=== PATIENT | female | born 1930 | race Caucasian/White ===

== ENCOUNTER → 2018-02-24 | Outpatient (CLI) | payer MEDICARE ==
[~2018-02-24] MED LIST: GADOBUTROL 7.5 MMOL/7.5 ML VIAL ONE
== END | disposition home or self-care (01) ==
LOC: CFH 13:11
PROVIDERS: ATTEND Surgery
DX: K76.89 Other specified diseases of liver (principal); D73.89 Other diseases of spleen; R19.09 Other intra-abdominal and pelvic swelling, mass and lump; Z90.710 Acquired absence of both cervix and uterus
CPT/HCPCS: 72197; 74183; A9585

== ENCOUNTER 2018-07-20 23:45 | Inpatient (IN) | payer MEDICARE ==
[~2018-07-20] VITALS: Ht 165.1 cm; Wt 75.3 kg
[2018-07-21] MEDS ORDERED: CEFTRIAXONE PMX 1GM/50ML 50 ML ONE (00:19)
[2018-07-21] MEDS ORDERED: methylPREDNISolone SOD SUCC 125 MG/2 ML ONE (00:19)
[2018-07-21] MEDS ORDERED: DOXYCYCLINE 100 MG in DEXTROSE 5% 250 ML IV ONE ×2 (00:30→02:30)
[2018-07-21] MEDS ORDERED: SODIUM CHLORIDE FLUSH 10ML SYR IVF ONE (00:30)
[2018-07-21] MEDS ORDERED: CEFTRIAXONE 1,000 MG in SODIUM CHLORIDE 0.9% 50 ML IVPB ONE (00:30)
[2018-07-21] MEDS ORDERED: methylPREDNISolone SOD SUCC 125 MG/2 ML IVP ONE (00:30)
--- NOTE | 2018-07-21 00:30 | NUR ---
PT ARRIVES TO ED WITH C/O OF SOB. PT ON ARRIVAL I WORKING TO BREATH AND BREATHING RAPIDLY AND PSOTURING. PT PLACED ON 4L NC AND PLACED INTO BETTER BODY POSITION TO BREATH. PT ON ASSESSMENT HAS CRACKLES THROUGHOUT LUNGS AND POOR AIR MOVEMENT. PT REPORTS THAT SHE FEELS LIKE SHE HAS PNEUMONIA THIS IS HOW SHE FELT BEFORE. PT CONNECTED TO ALL MONITORS AND CALL LIGHT IN REACH, LABS DRAWN, PIV PLACED AND MEDICATED PER EMAR. AWAITING FURTHER ORDERS AT THIS TIME.
[2018-07-21 00:35] LABS: MEAN CORPUSCULAR HEMOGLOBIN 30.2 pg (27.0-34.8); MEAN CORPUSCULAR HGB CONC 33.7 g/dL (32.4-35.8); MEAN CORPUSCULAR VOLUME 89.6 fL (80-100); MEAN PLATELET VOLUME 8.9 fL (7.4-10.4); PLATELET COUNT 165 x10^3/uL (130-400); RED BLOOD COUNT 4.76 x10^6/uL (3.82-5.3); RED CELL DISTRIBUTION WIDTH 15.6 % (9.6-15.2)
[2018-07-21 00:40] LABS: INTERNATIONAL NORMALIZED RATIO 1.15 (0.93-1.1)
[2018-07-21 00:43] LABS: ALANINE AMINOTRANSFERASE 20 U/L (12-78); ALBUMIN 3.3 g/dL (3.4-5.0); ANION GAP 10 mmol/L (5-15); CALCIUM 8.8 mg/dL (8.5-10.1); CHLORIDE 100 mmol/L (98-107); CREATININE 1.51 mg/dL (0.55-1.02)
[2018-07-21 00:48] LABS: ALKALINE PHOSPHATASE 96 U/L (45-117); BILIRUBIN,TOTAL 1.5 mg/dL (0.2-1.0); TOTAL PROTEIN 6.9 g/dL (6.4-8.2); TROPONIN I 0.029 ng/mL (0.000-0.045)
[2018-07-21] MEDS ORDERED: SODIUM CHLORIDE 0.9%, 500ML IVBOLUS ONE (01:00)
[2018-07-21] MEDS ORDERED: ATOR20TA37 PO (01:11)
[2018-07-21] MEDS ORDERED: EZET10TA18 PO (01:11)
[2018-07-21] MEDS ORDERED: CHOL2000 PO (01:11)
[2018-07-21] MEDS ORDERED: OMEP-110 PO (01:11)
[2018-07-21] MEDS ORDERED: FLUT1BLS PO (01:11)
[2018-07-21] MEDS ORDERED: BENA20TA54 PO (01:11)
[2018-07-21] MEDS ORDERED: ASPI-515 PO (01:11)
[2018-07-21 01:12] LABS: MD YES
--- NOTE | 2018-07-21 01:13 | NUR ---
REPORT TO [facility].
[2018-07-21 01:14] LABS: <PLATELET ESTIMATE> ADEQUATE; <PLT MORPHOLOGY> NORMAL PLT MORPH; <RBC MORPHOLOGY> NORMAL; BAND#(MANUAL) 2.08 x10^3/uL; BANDS%(MANUAL) 10 % (0-7); LYMPH#(MANUAL) 1.25 x10^3/uL (1-3.4); LYMPHS% (MANUAL) 6 % (22-44); MONOS#(MANUAL) 0.21 x10^3/uL (0.3-2.7); MONOS% (MANUAL) 1 % (2-9); SEG#(MANUAL) 17.26 x10^3/uL (1.8-6.8); SEGS% (MANUAL) 83 % (42-75)
[2018-07-21 01:30] VITALS: BP 144/73
[2018-07-21] MEDS ORDERED: ONDANSETRON ODT 4 MG PO PRN (01:30)
[2018-07-21] MEDS ORDERED: OXYcodone/APAP 5/325MG TABLET PO PRN (01:30)
[2018-07-21] MEDS ORDERED: POLYETHYLENE GLYCOL 17 GM PACKET PO PRN (01:30)
[2018-07-21] MEDS ORDERED: morphine SULFATE 10 MG/ML, 1ML IVPush PRN (01:30)
[2018-07-21] MEDS ORDERED: LABETALOL 5MG/ML, 20ML IVPush PRN (01:30)
[2018-07-21] MEDS ORDERED: BISACODYL 10 MG SUPP PR PRN (01:30)
[2018-07-21] MEDS ORDERED: DOCUSATE 100 MG CAPSULE PO PRN (01:30)
[2018-07-21] MEDS ORDERED: PROMETHAZINE 25 MG/ML, 1ML IM PRN (01:30)
[2018-07-21] MEDS ORDERED: hydrALAzine 20 MG/ML, 1ML IVPush PRN (01:30)
[2018-07-21] MEDS ORDERED: CEFTRIAXONE PMX 1GM/50ML 50 ML IV ONE (01:30)
[2018-07-21] MEDS ORDERED: ONDANSETRON 2MG/ML, 2ML IVPush PRN (01:30)
[2018-07-21 01:52] LABS: FREE T4 (FREE THYROXINE) 1.31 ng/dL (0.76-1.46); THYROID STIMULATING HORMONE 1.46 mIU/L (0.358-3.740)
[2018-07-21 01:55] LABS: HEMOGLOBIN A1C 5.7 % (4.2-6.3)
[2018-07-21] MEDS ORDERED: SODIUM CHLORIDE 0.9% 1,000 ML IV SCH (02:00)
[2018-07-21] MEDS: HEPARIN 5,000 UNITS/ML, 1ML SQ SCH ×3 (02:16→18:09)
[2018-07-21] MEDS ORDERED: ALBUTEROL SULFATE 2.5 MG/3 ML NPPB PRN (02:30)
[2018-07-21 04:20] LABS: ALANINE AMINOTRANSFERASE 18 U/L (12-78); ALBUMIN 2.7 g/dL (3.4-5.0); ANION GAP 9 mmol/L (5-15); CHLORIDE 101 mmol/L (98-107); CHOLESTEROL, TOTAL 112 mg/dL (140-239); CREATININE 1.38 mg/dL (0.55-1.02)
[2018-07-21 04:22] LABS: ALKALINE PHOSPHATASE 78 U/L (45-117); BILIRUBIN,TOTAL 0.9 mg/dL (0.2-1.0); CHOL/HDL RATIO 1.8; HDL CHOL % 57 % (28-40); HDL CHOLESTEROL (DIRECT) 64 mg/dL (40-60); LDL CHOLESTEROL,CALCULATED 39 mg/dL (54-169); LDL/HDL RATIO 0.6 (0.5-3.0); TOTAL PROTEIN 6.1 g/dL (6.4-8.2); TRIGLYCERIDES 44 mg/dL (50-200); VLDL CHOLESTEROL 9 mg/dL (0-25)
[2018-07-21 04:37] LABS: MEAN CORPUSCULAR HEMOGLOBIN 29.8 pg (27.0-34.8); MEAN CORPUSCULAR VOLUME 90.3 fL (80-100); MEAN PLATELET VOLUME 9.1 fL (7.4-10.4); PLATELET COUNT 131 x10^3/uL (130-400); RED BLOOD COUNT 4.28 x10^6/uL (3.82-5.3); RED CELL DISTRIBUTION WIDTH 15.7 % (9.6-15.2)
[2018-07-21 04:55] LABS: MD YES
[2018-07-21 04:56] LABS: BAND#(MANUAL) 2.34 x10^3/uL; BANDS%(MANUAL) 15 % (0-7); LYMPH#(MANUAL) 0.47 x10^3/uL (1-3.4); LYMPHS% (MANUAL) 3 % (22-44); SEG#(MANUAL) 12.48 x10^3/uL (1.8-6.8); SEGS% (MANUAL) 80 % (42-75)
[2018-07-21 04:57] LABS: <PLATELET ESTIMATE> ADEQUATE; <PLT MORPHOLOGY> NORMAL PLT MORPH; <RBC MORPHOLOGY> NORMAL; MONOS#(MANUAL) 0.31 x10^3/uL (0.3-2.7); MONOS% (MANUAL) 2 % (2-9)
[2018-07-21] MEDS ORDERED: ALBUTEROL SULFATE 2.5 MG/3 ML NPPB SCH (06:00)
[2018-07-21] MEDS: methylPREDNISolone SOD SUCC 125 MG/2 ML IVPush SCH ×3 (06:05→18:09)
[2018-07-21] MEDS: ALBUTEROL SULFATE 2.5 MG/3 ML NPPB SCH ×4 (07:00→19:29)
[2018-07-21] MEDS: BUDESONIDE 0.5 MG/2 ML INHA NPPB SCH ×2 (07:27→19:29)
[2018-07-21 07:42] VITALS: BP 133/76
[2018-07-21] MEDS: EZETIMIBE 10 MG TABLET PO SCH (08:46)
[2018-07-21] MEDS: CHOLECALCIFEROL 1,000 UNIT TABLET PO SCH (08:46)
[2018-07-21] MEDS: ASPIRIN 81 MG TABLET EC PO SCH (08:46)
[2018-07-21] MEDS: DOXYCYCLINE 100MG TABLET PO SCH ×2 (08:46→21:09)
[2018-07-21] MEDS: OMEPRAZOLE 20 MG CAPSULE.DR PO SCH (08:46)
[2018-07-21] MEDS ORDERED: FLUTICASONE/VILANTEROL 200-25MCG/INH INH SCH (09:00)
[2018-07-21] MEDS ORDERED: LIDOCAINE-MPF 1%, 5ML ONE (09:14)
[2018-07-21] MEDS: ACETAMINOPHEN 325 MG TABLET PO PRN ×3 (12:54→21:09)
[2018-07-21 13:46] VITALS: BP 126/72
[2018-07-21 18:43] VITALS: BP 122/77
[2018-07-21] MEDS: ATORVASTATIN 80 MG TABLET PO SCH (21:09)
[2018-07-21] MEDS ORDERED: DILTIAZEM 5 MG/ML, 5ML IVPush ONE ×2 (22:00→22:30)
[2018-07-21] MEDS ORDERED: ENOXAPARIN 80 MG/0.8 ML SQ SCH (23:00)
[2018-07-21] MEDS: CEFTRIAXONE PMX 2GM/50ML 50 ML IV SCH (23:05)
[2018-07-21] MEDS: ENOXAPARIN 80 MG/0.8 ML SQ SCH (23:05)
[2018-07-22] MEDS: methylPREDNISolone SOD SUCC 125 MG/2 ML IVPush SCH ×5 (00:49→23:19)
[2018-07-22 01:21] VITALS: BP 118/59
[2018-07-22 06:27] LABS: MEAN CORPUSCULAR HEMOGLOBIN 30.1 pg (27.0-34.8); MEAN CORPUSCULAR HGB CONC 33.5 g/dL (32.4-35.8); MEAN CORPUSCULAR VOLUME 89.9 fL (80-100); MEAN PLATELET VOLUME 9.4 fL (7.4-10.4); PLATELET COUNT 161 x10^3/uL (130-400); RED BLOOD COUNT 4.08 x10^6/uL (3.82-5.3); RED CELL DISTRIBUTION WIDTH 15.3 % (9.6-15.2)
[2018-07-22 06:37] LABS: ANION GAP 8 mmol/L (5-15); CALCIUM 8.8 mg/dL (8.5-10.1); CHLORIDE 104 mmol/L (98-107); CREATININE 1.29 mg/dL (0.55-1.02)
[2018-07-22 06:46] LABS: BASOPHILS # (AUTO) 0.01 x10^3/uL (0-0.1); BASOPHILS % (AUTO) 0 % (0-1); EOSINOPHILS % (AUTO) 0 % (1-7); LYMPHOCYTES # (AUTO) 0.54 x10^3/uL (1-3.4); LYMPHOCYTES % (AUTO) 3 % (22-44); MD SCAN; MONOCYTES # (AUTO) 0.36 x10^3/uL (0.2-0.8); MONOCYTES % (AUTO) 2 % (2-9); NEUTROPHILS # (AUTO) 17.32 x10^3/uL (1.8-6.8); NEUTROPHILS % (AUTO) 95 % (42-75)
[2018-07-22] MEDS: BUDESONIDE 0.5 MG/2 ML INHA NPPB SCH ×2 (07:30→19:44)
[2018-07-22] MEDS: ALBUTEROL SULFATE 2.5 MG/3 ML NPPB SCH ×3 (07:30→14:35)
[2018-07-22] MEDS ORDERED: METOPROLOL TARTRATE 25 MG TABLET PO SCH (08:00)
[2018-07-22 08:58] VITALS: BP 155/81
[2018-07-22] MEDS: OMEPRAZOLE 20 MG CAPSULE.DR PO SCH (09:04)
[2018-07-22] MEDS: CHOLECALCIFEROL 1,000 UNIT TABLET PO SCH (09:04)
[2018-07-22] MEDS: ASPIRIN 81 MG TABLET EC PO SCH (09:04)
[2018-07-22] MEDS: DOXYCYCLINE 100MG TABLET PO SCH ×2 (09:04→21:01)
[2018-07-22] MEDS: EZETIMIBE 10 MG TABLET PO SCH (09:04)
[2018-07-22 14:35] VITALS: BP 156/78
[2018-07-22] MEDS: AMLODIPINE 5 MG TABLET PO SCH (15:12)
[2018-07-22] MEDS ORDERED: IPRATROPIUM 0.5 MG/2.5 ML INHA NPPB SCH (16:00)
[2018-07-22] MEDS ORDERED: POTASSIUM CHLORIDE 40 MEQ in SODIUM CHLORIDE 0.9% 500 ML IV ONE (16:30)
[2018-07-22] MEDS ORDERED: OMNIPAQUE 350 MG/ML, 75ML BOTTLE ONE (16:53)
[2018-07-22] MEDS: CARVEDILOL 6.25 MG TABLET PO SCH (17:21)
[2018-07-22] MEDS: POTASSIUM CHLORIDE 20 MEQ TAB.ER.PRT PO SCH (17:21)
[2018-07-22] MEDS: ALBUTEROL/IPRATROPIUM 2.5MG/0.5MG, 3 ML NPPB SCH (19:44)
[2018-07-22 20:27] VITALS: BP 128/62
[2018-07-22] MEDS: ATORVASTATIN 80 MG TABLET PO SCH (21:01)
[2018-07-22] MEDS: ENOXAPARIN 80 MG/0.8 ML SQ SCH (23:19)
[2018-07-22] MEDS: CEFTRIAXONE PMX 2GM/50ML 50 ML IV SCH (23:19)
[2018-07-23 01:57] VITALS: BP 120/56
[2018-07-23 06:15] VITALS: BP 155/70
[2018-07-23] MEDS: methylPREDNISolone SOD SUCC 125 MG/2 ML IVPush SCH ×4 (06:18→23:04)
[2018-07-23] MEDS: CARVEDILOL 6.25 MG TABLET PO SCH ×2 (06:19→17:32)
[2018-07-23 06:37] LABS: ANION GAP 6 mmol/L (5-15); CALCIUM 8.7 mg/dL (8.5-10.1); CHLORIDE 108 mmol/L (98-107); CREATININE 1.23 mg/dL (0.55-1.02)
[2018-07-23] MEDS: BUDESONIDE 0.5 MG/2 ML INHA NPPB SCH ×2 (06:55→19:32)
[2018-07-23] MEDS: ALBUTEROL/IPRATROPIUM 2.5MG/0.5MG, 3 ML NPPB SCH ×4 (06:55→19:32)
[2018-07-23 07:15] VITALS: BP 158/83
[2018-07-23] MEDS: CHOLECALCIFEROL 1,000 UNIT TABLET PO SCH (09:45)
[2018-07-23] MEDS: EZETIMIBE 10 MG TABLET PO SCH (09:45)
[2018-07-23] MEDS: DOXYCYCLINE 100MG TABLET PO SCH ×2 (09:46→20:52)
[2018-07-23] MEDS: AMLODIPINE 5 MG TABLET PO SCH (09:46)
[2018-07-23] MEDS: ASPIRIN 81 MG TABLET EC PO SCH (09:46)
[2018-07-23] MEDS: OMEPRAZOLE 20 MG CAPSULE.DR PO SCH (09:46)
[2018-07-23] MEDS: POTASSIUM CHLORIDE 20 MEQ TAB.ER.PRT PO SCH ×2 (09:48→17:31)
[2018-07-23 14:03] VITALS: BP 145/84
[2018-07-23 19:49] VITALS: BP 152/79
[2018-07-23] MEDS: ATORVASTATIN 80 MG TABLET PO SCH (20:52)
[2018-07-23] MEDS: ENOXAPARIN 80 MG/0.8 ML SQ SCH (23:03)
[2018-07-23] MEDS: CEFTRIAXONE PMX 2GM/50ML 50 ML IV SCH (23:04)
[2018-07-24 03:44] VITALS: BP 159/75
[2018-07-24 05:10] VITALS: BP 126/96
[2018-07-24] MEDS: methylPREDNISolone SOD SUCC 125 MG/2 ML IVPush SCH ×3 (05:11→18:15)
[2018-07-24] MEDS: CARVEDILOL 6.25 MG TABLET PO SCH ×2 (05:11→18:15)
[2018-07-24 06:20] LABS: ANION GAP 5 mmol/L (5-15); CALCIUM 8.8 mg/dL (8.5-10.1); CHLORIDE 107 mmol/L (98-107); CREATININE 1.29 mg/dL (0.55-1.02)
[2018-07-24] MEDS: ALBUTEROL/IPRATROPIUM 2.5MG/0.5MG, 3 ML NPPB SCH ×4 (07:15→20:56)
[2018-07-24] MEDS: BUDESONIDE 0.5 MG/2 ML INHA NPPB SCH ×2 (07:15→20:56)
[2018-07-24 07:50] VITALS: BP 144/82
[2018-07-24 08:14] VITALS: BP 149/77
[2018-07-24] MEDS: EZETIMIBE 10 MG TABLET PO SCH (08:37)
[2018-07-24] MEDS: AMLODIPINE 5 MG TABLET PO SCH (08:37)
[2018-07-24] MEDS: OMEPRAZOLE 20 MG CAPSULE.DR PO SCH (08:37)
[2018-07-24] MEDS: POTASSIUM CHLORIDE 20 MEQ TAB.ER.PRT PO SCH ×2 (08:37→18:15)
[2018-07-24] MEDS: DOXYCYCLINE 100MG TABLET PO SCH ×2 (08:37→20:42)
[2018-07-24] MEDS: CHOLECALCIFEROL 1,000 UNIT TABLET PO SCH (08:37)
[2018-07-24] MEDS: ASPIRIN 81 MG TABLET EC PO SCH (08:37)
[2018-07-24 13:18] VITALS: BP 142/79
[2018-07-24 18:30] VITALS: BP 173/80
[2018-07-24] MEDS: ATORVASTATIN 80 MG TABLET PO SCH (20:42)
[2018-07-24] MEDS: CEFTRIAXONE PMX 2GM/50ML 50 ML IV SCH (23:23)
[2018-07-24] MEDS: ENOXAPARIN 80 MG/0.8 ML SQ SCH (23:23)
[2018-07-25] MEDS: methylPREDNISolone SOD SUCC 125 MG/2 ML IVPush SCH ×2 (00:35→05:59)
[2018-07-25 00:45] VITALS: BP 150/85
[2018-07-25 05:57] VITALS: BP 172/93
[2018-07-25] MEDS: CARVEDILOL 6.25 MG TABLET PO SCH (06:00)
[2018-07-25] MEDS: ALBUTEROL/IPRATROPIUM 2.5MG/0.5MG, 3 ML NPPB SCH ×2 (07:35→10:02)
[2018-07-25] MEDS: BUDESONIDE 0.5 MG/2 ML INHA NPPB SCH (07:35)
[2018-07-25 08:57] VITALS: BP 144/55
[2018-07-25] MEDS ORDERED: AMLODIPINE 5 MG TABLET PO SCH (09:00)
[2018-07-25] MEDS: OMEPRAZOLE 20 MG CAPSULE.DR PO SCH (09:30)
[2018-07-25] MEDS: ASPIRIN 81 MG TABLET EC PO SCH (09:30)
[2018-07-25] MEDS: DOXYCYCLINE 100MG TABLET PO SCH (09:30)
[2018-07-25] MEDS: EZETIMIBE 10 MG TABLET PO SCH (09:31)
[2018-07-25] MEDS: CHOLECALCIFEROL 1,000 UNIT TABLET PO SCH (09:31)
[2018-07-25] MEDS ORDERED: CARV6.2512 PO (09:44)
[2018-07-25] MEDS ORDERED: PRED5TAB PO (09:44)
[2018-07-25] MEDS ORDERED: DOCU-131 PO (09:44)
[2018-07-25] MEDS ORDERED: IPRA3AMP30 NPPB (09:44)
[2018-07-25] MEDS ORDERED: CEFD300C37 PO (09:44)
[2018-07-25] MEDS ORDERED: DOXY100T10 PO (09:44)
== END 2018-07-25 12:14 | disposition home or self-care (01) | DRG 871 ==
LOC: ED 07-21 00:46 → EDIP 07-21 00:47 → 4EST 07-21 01:30 → DCLOUNGE 07-25 11:40
PROVIDERS: ADMIT Internal Medicine; ATTEND Internal Medicine
PROC: 0W9B3ZZ Drainage of Left Pleural Cavity, Percutaneous Approach (ICD-10-PCS; principal; 2018-07-21)
DX: A41.9 Sepsis, unspecified organism (principal); J18.1 Lobar pneumonia, unspecified organism; J96.21 Acute and chronic respiratory failure with hypoxia; N17.0 Acute kidney failure with tubular necrosis; E44.0 Moderate protein-calorie malnutrition; J44.0 Chronic obstructive pulmonary disease with (acute) lower respiratory infection; J44.1 Chronic obstructive pulmonary disease with (acute) exacerbation; M54.9 Dorsalgia, unspecified; R59.0 Localized enlarged lymph nodes; E04.1 Nontoxic single thyroid nodule; E78.5 Hyperlipidemia, unspecified; I11.9 Hypertensive heart disease without heart failure; I48.91 Unspecified atrial fibrillation; K21.9 Gastro-esophageal reflux disease without esophagitis; R65.20 Severe sepsis without septic shock; Z79.899 Other long term (current) drug therapy; Z68.27 Body mass index [BMI] 27.0-27.9, adult; Z87.891 Personal history of nicotine dependence; Z90.710 Acquired absence of both cervix and uterus; Z99.81 Dependence on supplemental oxygen; Z90.49 Acquired absence of other specified parts of digestive tract
CPT/HCPCS: 32555; 36415; 71045; 71260; 76536; 80048; 80053; 80061; 83036; 83605; 83615; 83735; 83880; 84100; 84439; 84443; 84484; 85025; 85610; 87040; 87070; 87205; 88112; 89051; 93005; 93306; 94640; 94667; 96365; 96375; 99291; G0378; J0696; J1644; J1650; J3480; J7060; J7613; J7620; J7626; Q9967; J2930; J7030; J7040

== ENCOUNTER 2018-09-01 09:21 | Outpatient (CLI) | payer MEDICARE ==
[~2018-09-01 09:21] MED LIST changes: +ASPI-515 PO; +ATOR20TA37 PO; +BENA20TA54 PO; +CARV6.2512 PO; +CEFD300C37 PO; +CHOL2000 PO; +DOCU-131 PO; +DOXY100T10 PO; +EZET10TA18 PO; +FLUT1BLS PO; -GADOBUTROL 7.5 MMOL/7.5 ML VIAL ONE; +IPRA3AMP30 NPPB; +OMEP-110 PO; +PRED5TAB PO
[2018-09-01] MEDS ORDERED: GADOBUTROL 7.5 MMOL/7.5 ML VIAL ONE (12:19)
== END 2018-09-01 23:59 | disposition home or self-care (01) ==
LOC: CFH 09:21
PROVIDERS: ATTEND Family Medicine
DX: K76.89 Other specified diseases of liver (principal); D18.09 Hemangioma of other sites; K63.9 Disease of intestine, unspecified; Z90.49 Acquired absence of other specified parts of digestive tract; Z98.82 Breast implant status
CPT/HCPCS: 72197; 74183; 82565; A9585